=== PATIENT | female | born 1990 | race Caucasian/White ===

== ENCOUNTER 2020-08-18 16:32 | Emergency (ER) | payer SELFPAY ==
[2020-08-19 04:20] LABS: SARS-CoV-2 PCR by NAA Not Detected (NotDetected)
== END 2020-08-18 17:17 | disposition home or self-care (01) ==
LOC: ERS 16:32
DX: M62.81 Muscle weakness (generalized) (principal); Z20.822 Contact with and (suspected) exposure to COVID-19
CPT/HCPCS: 87635; 99283; U0003; U0005

== ENCOUNTER 2020-09-08 18:40 | Emergency (ER) | payer OTHER, SELFPAY ==
[2020-09-09 05:50] LABS: SARS-CoV-2 PCR by NAA Not Detected (NotDetected)
== END 2020-09-08 20:55 | disposition home or self-care (01) ==
LOC: ERS 18:40
DX: J01.10 Acute frontal sinusitis, unspecified (principal); R55 Syncope and collapse; Z20.822 Contact with and (suspected) exposure to COVID-19
CPT/HCPCS: 71046; 87635; 93005; U0003; U0005

== ENCOUNTER 2021-05-08 14:38 | Emergency (ER) | payer OTHER | END 2021-05-08 17:18 | disposition left against medical advice (07) | LOC: ERS 14:38 | DX: Z53.21 Procedure and treatment not carried out due to patient leaving prior to being seen by health care provider (principal) ==